=== PATIENT | female | born 1955 | race Caucasian/White ===

== ENCOUNTER 2017-07-26 15:30 | Outpatient (CLI) | payer OTHER, MEDICARE ==
--- NOTE | 2017-07-27 10:24 | Mammography Report ---
DIGITAL SCREENING MAMMOGRAM: 07/26/2017 CLINICAL INDICATION: A 62-year-old, for screening. COMPARISON: Films from [facility] dated 11/24/2015, 02/03/2014. TECHNIQUE: Routine CC and MLO projections were obtained of the breasts. FINDINGS: Parenchymal tissue within the breasts is predominantly fatty replaced. There are no domina nt masses, suspicious microcalcifications, or secondary signs of malignancy. In comparison to the pre vious studies, there are no significant changes. IMPRESSION: NO MAMMOGRAPHIC EVIDENCE OF MALIGNANCY. NO SIGNIFICANT INTERVAL CHANGES. RECOMMENDATION: Screening mammography is recommended annually. BIRADS category 1 - negative. STANDARD QUALIFYING STATEMENTS 1. This examination was reviewed with the aid of Computed-Aided Detection (CAD). 2. A negative or benign imaging report should not delay biopsy if clinically suspicious findings are present. Consider surgical consultation if warranted. More than 5% of cancers are not identified by i maging. 3. Dense breasts may obscure an underlying neoplasm. JOB #: [id number] EXT JOB #:[id number]
== END 2017-07-26 15:31 | disposition home or self-care (01) ==
LOC: DI 15:30
PROVIDERS: ATTEND Nurse Practitioner Adult Health
DX: Z12.31 Encounter for screening mammogram for malignant neoplasm of breast (principal)
CPT/HCPCS: 77067

== ENCOUNTER 2018-05-03 04:21 | Outpatient (CLI) | payer MEDICARE | END 2018-05-03 04:22 | disposition critical access hospital (66) | LOC: EMS 04:21 | PROVIDERS: ATTEND Surgery | DX: R10.30 Lower abdominal pain, unspecified (principal); M54.9 Dorsalgia, unspecified; R11.2 Nausea with vomiting, unspecified | CPT/HCPCS: A0425; A0427 ==

== ENCOUNTER 2018-05-03 04:35 | Emergency (ER) | payer MEDICARE, OTHER ==
--- NOTE | 2018-05-03 04:36 | ED Physician Documentation ---
History of Present Illness - Stated complaint Stated Complaint: N/V, BACK AND ABD PAIN - History obtained from History obtained from: Patient - History of Present Illness Timing: Enter time (01:00) Pain level max: 8 Pain level now: 8 Radiates to: left abdomen Improved by: no ameliorating factors Worsened by: no exacerbating factors - Additonal information Additional information: awoken from sleep at approximately 1 AM due to left mid/lower back pain that radiates around the left flank to left abdomen/LLQ, associated with nausea and vomiting. Feels similar to previous renal colic, which she last had a few years ago. She has seen urology but has not required removal of her previous stones ( passed spontaneously). BIBA, given 4mg IV zofran, 100 micrograms fentanyl, and 600 cc IV NS en route. these measures effected little improvement Review of Systems Constitutional: denies: Fever Cardiac: reports: Reviewed and negative Respiratory: reports: Reviewed and negative GI: reports: Abdominal Pain, Nausea, Vomiting : denies: Dysuria, Frequency Musculoskeletal: reports: Back pain PD PAST MEDICAL HISTORY - Past Medical History Past Medical History: Yes Other Past Medical History: [id number] - Past Surgical History Past Surgical History: Yes General: Appendectomy /OYSTERMAN: Hysterectomy, Oophrectomy - Present Medications Home Medications: Ambulatory Orders Medication Instructions Recorded Confirmed Hydrocodone/Acetaminophen [Vicodin 1 each PO Q4-6H PRN 05/03/18 Es 7.5-300 mg Tablet] Tamsulosin [Flomax] 0.4 mg PO DAILY #7 capsule 05/03/18 oxyCODONE [Roxicodone] 5 - 10 mg PO Q6H PRN #20 tablet 05/03/18 - Allergies Allergies/Adverse Reactions: Allergies Allergy/AdvReac Type Severity Reaction Status Date / Time Penicillins Allergy Severe Hives Verified 05/03/18 04:38 tramadol Allergy Severe Itching Verified 05/03/18 04:38 erythromycin lactobionate * Allergy Edema Verified 05/03/18 04:38 [From Erythrocin] - Living Situation Living Situation: reports: Alone Living Arrangement: reports: At home PD ED PE NORMAL - Vitals Vital signs reviewed: Yes - General General: Alert and oriented X 3, Well developed/nourished, Other (obvious, severe painful distress) - HEENT HEENT: Moist mucous membranes - Cardiac Cardiac: RRR, No murmur - Respiratory Respiratory: No respiratory distress, Clear bilaterally - Abdomen Abdomen: Soft, Non tender - Back Back: No CVA TTP - Derm Derm: Normal color, Warm and dry - Neuro Neuro: Alert and oriented X 3 Results - Vitals Vitals: Vital Signs - 24 hr 05/03/18 05/03/18 04:36 06:41 Temperature 36.6 C Heart Rate 70 65 Respiratory 20 18 Rate Blood Pressure 161/102 H 130/67 O2 Saturation 97 97 Oxygen O2 Source Room air - Labs Labs: Laboratory Tests 05/03/18 05/03/18 05/03/18 05:16 05:16 05:51 WBC 8.3 RBC 3.88 L Hgb 12.2 Hct 37.0 MCV 95.3 MCH 31.5 H MCHC 33.1 RDW 13.9 Plt Count 212 MPV 8.5 Neut # (Auto) 7.4 H Lymph # (Auto) 0.5 L [place] # (Auto) 0.3 Eos # (Auto) 0.0 Baso # (Auto) 0.0 Absolute Nucleated RBC 0.00 Nucleated RBC % 0.0 Sodium 138 Potassium 3.3 L Chloride 106 Carbon Dioxide 25 Anion Gap 7.0 BUN 16 Creatinine 0.8 Estimated GFR (MDRD) 72 L Glucose 183 H Calcium 8.4 L Total Bilirubin 0.4 AST 21 ALT 18 Alkaline Phosphatase 79 Total Protein 7.0 Albumin 3.5 Globulin 3.5 Albumin/Globulin Ratio 1.0 Lipase 36 Urine Color YELLOW Urine Clarity CLEAR Urine pH 5.5 Ur Specific [place] >=1.030 H Urine Protein NEGATIVE Urine Glucose (UA) NEGATIVE Urine Ketones TRACE Urine Occult Blood SMALL H Urine Nitrite NEGATIVE Urine Bilirubin NEGATIVE Urine Urobilinogen 0.2 (NORMAL) Ur Leukocyte Esterase NEGATIVE Urine RBC 6-10 H Urine WBC 0-3 Ur Squamous Epith Cells FEW Squamous Urine Bacteria Few Urine Mucus Moderate Strands Ur Microscopic Review INDICATED Urine Culture Comments NOT INDICATED - Rads (name of study) CT A/P Radiology: Prelim report reviewed, See rad report PD MEDICAL DECISION MAKING - ED course Complexity details: reviewed results, re-evaluated patient, considered differential, d/w patient ED course: On reevaluation, after tests resulted and IV dilaudid and phenergan given, patient appeared to be in NAD, and reports significant improvement (from 8/10 pain to 4/10 pain). results discussed, advised to f/u with urology, return if worse. - Sepsis Event Vital Signs: Vital Signs - 24 hr 05/03/18 05/03/18 04:36 06:41 Temperature 36.6 C Heart Rate 70 65 Respiratory 20 18 Rate Blood Pressure 161/102 H 130/67 O2 Saturation 97 97 Oxygen O2 Source Room air Departure - Departure Disposition: 01 Home, Self Care Clinical Impression: Renal colic Condition: Good Instructions: ED Stone Renal W Colic Follow-Up: WINNIE SANDERS ARNP [Primary Care Provider] - Prescriptions: oxyCODONE [Roxicodone] 5 - 10 mg PO Q6H PRN #20 tablet PRN Reason: Pain Tamsulosin [Flomax] 0.4 mg PO DAILY #7 capsule Discharge Date/Time: 05/03/18 07:18
[2018-05-03] MEDS ORDERED: HYDROmorphone 2 MG/ML VIAL IVP STA ×2 (04:48→06:30)
[2018-05-03] MEDS ORDERED: PROMETHAZINE INJ 25 MG in SODIUM CHLORIDE 0.9% 50 ML IV STA (04:48)
[2018-05-03] MEDS ORDERED: SODIUM CHLORIDE 0.9% 1,000 ML IV STA (04:49)
[2018-05-03 05:24] LABS: BASOPHILS % (AUTO) 0.4 %; EOSINOPHILS % (AUTO) 0.6 %; HGB - HEMOGLOBIN 12.2 g/dL (12.0-16.0); LYMPHOCYTES # (AUTO) 0.5 10^3/uL (1.5-3.5); LYMPHOCYTES % (AUTO) 6.3 %; MEAN CORPUSCULAR HEMOGLOBIN 31.5 pg (27.0-31.0); MEAN CORPUSCULAR HGB CONC 33.1 g/dL (32.0-36.0); MEAN CORPUSCULAR VOLUME 95.3 fL (81.0-99.0); MEAN PLATELET VOLUME 8.5 fL (7.9-10.8); MONOCYTES # (AUTO) 0.3 10^3/uL (0.0-1.0); MONOCYTES % (AUTO) 3.5 %; NEUTROPHILS # (AUTO) 7.4 10^3/uL (1.5-6.6); NEUTROPHILS % (AUTO) 89.2 %; PLT - PLATELET COUNT 212 10^3/uL (130-450); RED BLOOD COUNT 3.88 10^6/uL (4.20-5.40); RED CELL DISTRIBUTION WIDTH 13.9 % (12.0-15.0); WHITE BLOOD COUNT 8.3 x10^3/uL (4.8-10.8)
--- NOTE | 2018-05-03 05:28 | CT Report ---
Procedure Date: 05/03/2018 Accession Number: [id number] / [id number] Procedure: CT - Abdomen/Pelvis W/O CPT Code: FULL RESULT: EXAM: CT ABDOMEN AND PELVIS (CT KUB) EXAM DATE: 05/03/2018 05:11 AM. CLINICAL HISTORY: Left flank pain. COMPARISONS: ABD/PEL 07/05/2007. TECHNIQUE: Routine axial helical CT imaging was performed through the abdomen and pelvis without IV contrast. Reconstructions: Coronal and sagittal. In accordance with CT protocol optimization, one or more of the following dose reduction techniques were utilized for this exam: automated exposure control, adjustment of mA and/or KV based on patient size, or use of iterative reconstructive technique. FINDINGS: Lung Bases: Unremarkable. Right Kidney/Ureter: No stones, hydronephrosis, or hydroureter. No perinephric fat stranding. Left Kidney/Ureter: Moderate left hydronephrosis and hydroureter. No upper tract calculus. Other Solid Organs: Noncontrast images of the solid organs are grossly unremarkable. Gallbladder/Bile Ducts: Unremarkable. Peritoneal Cavity: No free fluid, free air or yancy adenopathy. Bowel is grossly unremarkable. Pelvic Organs: There is a calculus at the left ureterovesicular junction, measuring 8 x 6 mm. Postoperative changes of hysterectomy are noted. No pelvic adenopathy or free fluid is present. Vasculature: Unremarkable. Other: None. IMPRESSION: Moderate left hydronephrosis and hydroureter, with an 8 x 6 mm calculus at the left ureterovesicular junction. RADIA
[2018-05-03 05:35] LABS: ALBUMIN 3.5 g/dL (3.2-5.5); BILIRUBIN,TOTAL 0.4 mg/dL (0.2-1.0); CALCIUM 8.4 mg/dL (8.5-10.3); CREATININE 0.8 mg/dL (0.4-1.0)
[2018-05-03 06:09] LABS: BILIRUBIN,URINE NEGATIVE (NEGATIVE); GLUCOSE, URINE (UA) NEGATIVE (NEGATIVE); KETONES,URINE (UA) TRACE mg/dL (NEGATIVE); LEUKOCYTE ESTERASE, URINE NEGATIVE (NEGATIVE); NITRITE,URINE NEGATIVE (NEGATIVE); OCCULT BLOOD,URINE SMALL (NEGATIVE); PH,URINE 5.5 PH (5.0-7.5); PROTEIN,URINE NEGATIVE (NEGATIVE); UROBILINOGEN,URINE 0.2 (NORMAL) E.U./dL (NORMAL)
[2018-05-03 06:19] LABS: BACTERIA,URINE Few /HPF (None Seen); CLARITY,URINE CLEAR (CLEAR); MUCUS,URINE Moderate Strands; SQUAMOUS EPITHELIAL CELL,UR FEW Squamous (<= Few)
[2018-05-03] MEDS ORDERED: TAMSULOSIN 0.4 MG CAPSULE PO STA (06:31)
[2018-05-03] MEDS ORDERED: KETOROLAC 60 MG/2 ML VIAL IVP STA (06:31)
[2018-05-03 06:43] VITALS: BP 130/67
== END 2018-05-03 07:18 | disposition home or self-care (01) ==
LOC: EDUNIT# → ED 04:35
DX: N23 Unspecified renal colic (principal)
CPT/HCPCS: 36415; 74176; 80053; 81001; 83690; 85025; 96365; 96375; 96376; 99283; 99284; A9270; J1170; J7040; 81003; 87086

== ENCOUNTER 2018-06-23 12:14 | Outpatient (CLI) | payer OTHER ==
--- NOTE | 2018-06-24 00:52 | Ultrasound Report ---
Procedure Date: 06/23/2018 Accession Number: [id number] / [id number] Procedure: US - Retroperitoneal CPT Code: FULL RESULT: EXAM: RENAL ULTRASOUND EXAM DATE: 06/23/2018 12:35 PM. CLINICAL HISTORY: Ureteral calculus. COMPARISON: 05/03/2018. TECHNIQUE: Real-time scanning was performed with static images obtained. FINDINGS: Right Kidney: 12.6 x 5.3 x 4.3 cm. Normal echotexture with no stones, contour-deforming masses, or hydronephrosis. Left Kidney: 10.6 x 5.5 x 5.3 cm. 0.7 cm mid left renal nonobstructing stone. No contrast deforming left renal mass or hydronephrosis. Bladder: Bilateral jets seen. The prevoid bladder volume was 197.5 cc. The postvoid bladder volume was 47.31 cc. Other: None. IMPRESSION: 1. Nonobstructing 0.7 cm left renal stone. 2. No mass or hydronephrosis. 3. Normal bladder. RADIA
== END 2018-06-23 12:15 | disposition home or self-care (01) ==
LOC: DI 12:14
PROVIDERS: ATTEND Physician Assistant
DX: N20.1 Calculus of ureter (principal)
CPT/HCPCS: 76770

== ENCOUNTER 2019-08-13 12:52 | Outpatient (CLI) | payer OTHER ==
--- NOTE | 2019-08-14 09:11 | Mammography Report ---
Reason: ROUTINE MAMMO Procedure Date: 08/13/2019 Accession Number: [id number] / [id number] Procedure: [facility] - Screening Mammo w/Jayden CPT Code: FULL RESULT: EXAM: Screening Mammo w/Jayden DATE: 08/13/2019 2:10 PM CLINICAL HISTORY: Screening TECHNIQUE: (B) - Bilateral CC and MLO views were obtained. COMPARISON: 07/26/2017 PARENCHYMAL PATTERN: (A) - The breasts demonstrate scattered fibroglandular densities bilaterally. FINDINGS: No significant change. There are no suspicious masses, calcifications, or areas of distortion. IMPRESSION: Negative examination. BI-RADS category 1. RECOMMENDATION: (ANNUAL) - Recommend routine annual screening mammography. BI-RADS CATEGORY: (1) - Negative. STANDARD QUALIFYING STATEMENTS: 1. This examination was not reviewed with the aid of Computer-Aided Detection (CAD). 2. A negative or benign imaging report should not preclude biopsy if clinically suspicious findings are present. 3. Dense breasts may obscure an underlying neoplasm. 4. This examination was reviewed with the aid of 3D breast imaging (tomosynthesis).
== END 2019-08-13 12:53 | disposition home or self-care (01) ==
LOC: DI 12:52
DX: Z12.31 Encounter for screening mammogram for malignant neoplasm of breast (principal)
CPT/HCPCS: 77063; 77067

== ENCOUNTER 2021-10-26 14:35 | Outpatient (CLI) | payer OTHER ==
--- NOTE | 2021-10-26 16:27 | MRI Report ---
PROCEDURE: Lumbar Spine W/O INDICATIONS: URINARY INCONTINENCE, LOW BACK PAIN TECHNIQUE: Noncontrast sagittal T1 spin echo and T2 fast echo, sagittal STIR, axial T1 and T2 fast spin echo thr ough the lumbar spine. In cases with scoliosis, additional coronal T2 fast spin echo may be performe d. COMPARISON: None. FINDINGS: Straightening of the usual lumbar lordosis. Otherwise normal alignment without listhesis. Vertebral b monster heights maintained. Discogenic marrow edema at the opposing endplates from L2-L3 through L5-S1 wi th mild periarticular marrow edema adjacent to the facets at L4-L5 and L5-S1. Normal position and appearance of the conus. Prevertebral and paraspinous soft tissues are within nor mal limits. Small right renal cyst. Included portions of the retroperitoneal structures demonstrate n o acute abnormality in the absence of IV contrast. T12-L1: No spinal canal or neural foraminal stenosis. L1-L2: Diffuse disc bulge most pronounced in the left paracentral and subarticular zones with mild di splacement of the descending left L2 nerve roots. Foraminal component of the disc bulge produces mild left neural foraminal narrowing in conjunction with facet hypertrophy. Small left facet effusion. L2-L3: Diffuse disc bulge flattens the ventral thecal sac with displacement of the bilateral desce nding L3 nerve roots in both subarticular zones. Foraminal components of the disc bulge combined with facet hypertrophy to produce mild bilateral neural foraminal stenosis. L3-L4: Diffuse disc bulge flattens and indents the ventral thecal sac with displacement of the desc ending bilateral L4 nerve roots. Foraminal components of the disc bulge contribute to mild bilateral neural foraminal stenosis. Small facet effusions with subchondral cystic change. L4-L5: Moderate to severe subarticular zone stenosis due to diffuse disc bulge displacing the desce nding L5 nerve roots in both subarticular zones. Increased T2 signal of the left L5 nerve roots sugge sts possible impingement. Foraminal components of the disc bulge and facet hypertrophy combine to pro duce mild bilateral neural foraminal stenosis. L5-S1: Disc bulge with mild displacement of the descending S1 nerve roots. Moderate neural foramina l narrowing on the right and mild neural foraminal narrowing on the left due to foraminal components of the disc bulge. Visualized proximal portions of the remaining exiting sacral nerve roots appear grossly impinged. 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 Reviewed by: Shine Owusu MD on 10/26/2021 4:26 PM PST Approved by: Shine Owusu MD on 10/26/2021 4:26 PM PST Station ID: [id number]
== END 2021-10-26 14:36 | disposition home or self-care (01) ==
LOC: DI 14:35
PROVIDERS: ATTEND Physician Assistant
DX: R32 Unspecified urinary incontinence (principal); M47.816 Spondylosis without myelopathy or radiculopathy, lumbar region; M48.061 Spinal stenosis, lumbar region without neurogenic claudication; M48.07 Spinal stenosis, lumbosacral region; M25.48 Effusion, other site

== ENCOUNTER 2023-05-17 15:23 | Outpatient (CLI) | payer OTHER ==
--- NOTE | 2023-05-18 12:08 | Mammography Report ---
BILATERAL DIGITAL SCREENING MAMMOGRAM 3D/2D: 05/17/2023 CLINICAL: Routine screening. Comparison is made to exams dated: 08/13/2019 mammogram, 07/26/2017 mammogram, and 11/24/2015 mammogram - [facility]. Both breasts are almost entirely fatty (category a/<25% glandular tissue). There is a benign focal asymmetry in the right breast. No significant masses, calcifications, or other findings are seen in either breast. There has been no significant interval change. IMPRESSION: BENIGN There is no mammographic evidence of malignancy. A 1 year screening mammogram is recommended. Based on the Tyrer Cuzick model (a risk assessment model) the patients lifetime risk is 2.3% and her 10 year risk is 1.2%. According to the ACR, ACS, and NCCN guidelines, an annual breast MRI exam estella g with mammogram is recommended if the patients lifetime risk is 20% or greater. This exam was interpreted at Station ID: [id number]. NOTE: For mammograms, a report in lay terms will be sent to the patient. Approximately 15% of breast malignancies will not be visualized mammographically. In the management of a palpable breast mass, a negative mammogram must not discourage biopsy of a clinically suspicious lesion. Electronically Signed By: Milton hurst/rosanna:05/18/2023 07:13:57 letter sent: No_Letter ACR BI-RADS Category 2: Benign Finding(s) 3342F PARENCHYMAL PATTERN: (F) - The breast(s) demonstrate(s) diffuse fatty replacement. BI-RADS CATEGORY: (2) - 2 Mammogram [id number] 1 year screening LATERALITY: (B)
== END 2023-05-17 15:24 | disposition home or self-care (01) ==
LOC: DI.N 15:23
PROVIDERS: ATTEND Physician Assistant
DX: Z12.31 Encounter for screening mammogram for malignant neoplasm of breast (principal)